=== PATIENT | female | born 1990 | race Caucasian/White ===

== ENCOUNTER 2016-05-24 10:48 | Day surgery (SDC) | payer OTHER ==
[~2016-05-24] VITALS: Ht 160 cm; Wt 130.5 kg
[2016-05-24 11:40] VITALS: Ht 160 cm; Wt 130.5 kg
[2016-05-24 11:53] VITALS: BP 140/84; PULSE 64; RESP 20
[2016-05-24] MEDS ORDERED: PROPOFOL 20 ML ONE ×2 (12:09→12:47)
--- NOTE | 2016-05-24 12:57 | GILP ---
DATE OF PROCEDURE: 05/24/2016 NAME OF PROCEDURE: Esophagogastroduodenoscopy and biopsy. SURGEON: Jordy Houston MD PREOPERATIVE DIAGNOSIS: Screening upper endoscopy before bariatric surgery. POSTOPERATIVE DIAGNOSES: 1. Severe gastritis with erosions. 2. Gastric mucosal biopsies were taken for Helicobacter pylori test. INDICATION FOR THE PROCEDURE: Ms. Jazmine Lemons is a 26-year-old female patient who had marked obesit y. The patient was being evaluated for bariatric surgery. The patient needed screening upper endos copy before the surgical procedure. The procedure and possible complications are well explained to the patient, she understood and conse nted to the procedure. DESCRIPTION OF PROCEDURE: Under the influence of anesthesia, the gastroscope was carefully introduc ed into the esophagus and under direct vision, it was advanced to the stomach and through the pyloru s into the duodenal bulb and descending duodenum. FINDINGS: ESOPHAGUS: The mucosa was normal. STOMACH: The patient had severe gastritis with erosions. Gastric mucosal biopsies were taken for H . pylori test. DUODENUM: Normal. The patient tolerated the procedure very well and there was no complication from the procedure. At the end of the procedure, she was awake with stable vital signs and she was discharged home to [facility]. IMPRESSION: 1. Severe gastritis with erosions. 2. Gastric mucosal biopsies were taken for Helicobacter pylori test. PLAN: 1. Omeprazole 40 mg p.o. q.a.m. 2. Await H. pylori test report. Dictated By: JORDY BECKER/BAILEY Conf#: [id number] DID#: [id number] CC: JORDY HOUSTON MD;*EndCC*
[2016-05-24 13:17] VITALS: BP 110/76; RESP 20
== END 2016-05-24 13:20 | disposition home or self-care (01) ==
LOC: GIL 10:48
PROVIDERS: ATTEND Internal Medicine Gastroenterology
DX: Z12.11 Encounter for screening for malignant neoplasm of colon (principal); K29.60 Other gastritis without bleeding; B96.81 Helicobacter pylori [H. pylori] as the cause of diseases classified elsewhere; E66.01 Morbid (severe) obesity due to excess calories; Z68.43 Body mass index [BMI] 50.0-59.9, adult
CPT/HCPCS: 43239; 84703; 87081; Z7610

== ENCOUNTER → 2016-08-15 | Outpatient (CLI) | payer OTHER ==
[2016-08-15 13:41] LABS: AADO2 Arterial 10.7 mmHg (7.0-24.0); Allen Test ACCEPTAB; Arterial Base Excess -1.9 mmol/L (-3.0-3); Arterial COHb 0.3 % (0.0-3.0); Arterial Fraction of Oxyhgb 96.6 % (93.0-99.0); Arterial HCO3 22.2 mmol/L (22.0-26.0); Arterial MetHb 0.3 % (0.0-1.5); Arterial Total Hemglobin 14.2 g/dl (12.0-18.0); MODE ROOM AIR
== END | disposition home or self-care (01) ==
LOC: PUL 13:20
PROVIDERS: ATTEND Internal Medicine Pulmonary Disease
DX: Z01.818 Encounter for other preprocedural examination (principal)
CPT/HCPCS: 36600; 82803